=== PATIENT | male | born 1990 | race Caucasian/White ===

== ENCOUNTER → 2018-06-30 | Outpatient (CLI) | payer BC, OTHER ==
[~2018-06-30] MED LIST: CETI5TAB41 PO
--- NOTE | 2018-06-30 10:04 | RADIOLOGY IMAGING REPORT ---
FACILITY: [facility] PATIENT NAME: Sergio Cabrera : 1990 MR: [id number] V: [id number] EXAM DATE: ORDERING PHYSICIAN: FRANCIS RAVI TECHNOLOGIST[place] [facility] [place] : 1990 Visit/Account:[id number] Date of Sevice: 06/30/2018 EXAMINATION: Scrotal ultrasound with duplex Doppler evaluation 06/30/2018 9:00 AM HISTORY: Testicular pain COMPARISON STUDIES: none FINDINGS: Testes: Right: 4.9 x 2.2 x 3.3 cm, Left: 4.5 x 2.2 x 3.0 cm negative Symmetric blood flow documented by color Doppler ultrasound Arterial blood flow within each testicle by duplex Doppler ultrasound. Venous blood flow is als o documented. Epididymides: 9 mm epididymal head cyst on the right. Blood flow is appropriate in each epididymis by color Doppler ultrasound. Hydrocele: none Varicocele: There is a 3 mm vessel behind the testicle on the right which may have thrombus. Scanning of the right inguinal area was done without and with a Salter. There is a mild protrusion o f material without chari hernia. IMPRESSION: 1. 9 mm right epididymal head cyst. Otherwise unremarkable sonographic appearance of the testicles and epididymides. 2. Apparent thrombosed vessel behind the right testicle without a varicocele otherwise evident. Cli nical significance of this uncertain with respect to the presentation. 3. Small right inguinal protrusion without chari hernia. Report Dictated By: Rick Herrmann MD at 06/30/2018 9:55 AM Report E-Signed By: Rick Herrmann MD at 06/30/2018 10:00 AM WSN:[id number]
== END ==
LOC: US 00:43
PROVIDERS: ATTEND Physician Assistant
DX: N50.3 Cyst of epididymis (principal)
CPT/HCPCS: 76870